=== PATIENT | female | born 1975 ===

== ENCOUNTER 2024-05-04 07:28 | Day surgery (SDC) | payer OTHER ==
[2024-05-03 11:59] LABS: URINE APPEARANCE Cloudy; URINE BILIRRUBIN Negative (NEGATIVE); URINE BLOOD Negative; URINE COLOR Dark Yellow; URINE GLUCOSE Negative (NEGATIVE); URINE LEUKOCYTE Small; URINE NITRATE Negative; URINE PROTEIN Negative (NEGATIVE)
[2024-05-03 12:00] LABS: URINE EPITHELIAL CELLS 85.6 uL (0.0-38.8); URINE RBC 3.6 uL (0.0-20.8); URINE WBC 75.7 uL (0.0-23.2)
[2024-05-03 12:10] LABS: HEMATOCRIT 43.3 % (36.0-45.00); HEMOGLOBIN 14.9 g/dL (12.0-15.00); MEAN CORPUSCULAR HEMOGLOBIN 31.3 pg (27.00-32.0); MEAN CORPUSCULAR HGB CONC 34.4 g/dl (32.0-36.0); PLATELET COUNT 241 K/uL (150-450); RED BLOOD COUNT 4.75 M/uL (4.00-6.00); RED CELL DISTRIBUTION WIDTH 14.3 % (11.5-14.5)
[2024-05-03 12:57] LABS: ALBUMIN 4.2 gm/dL (3.4-5.0); BILIRUBIN TOTAL 0.4 mg/dL (0.3-1.2); CREATININE SERUM 0.94 mg/dL (0.55-1.02); GFR 62.78; POTASSIUM 4.47 mEq/L (3.5-5.1); TOTAL PROTEIN 7.2 gm/dL (6.4-8.2)
[2024-05-03 13:05] LABS: INR 0.97; PARTIAL THROMBOPLASTIN TIME 27.4 SECONDS (22.0-34.0); PROTHROMBIN TIME 9.8 SECONDS (9.0-11.5)
[~2024-05-04 07:28] MED LIST: BUPROPION XL450 MG PO; CAMBIA50 MG PO; CLONAZEPAM1 MG PO; GRALISE600 MG PO; SYNTHROID125 MCG PO; TRAZODONE HCL150 MG PO
[2024-05-04] MEDS ORDERED: CEFAZOLIN SODIUM 1,000 MG VIAL ONE (13:20)
[2024-05-04] MEDS ORDERED: BUPIVACAINE HCL/MPF 0.5% 30ML VIAL ONE (13:21)
[2024-05-04] MEDS ORDERED: BUPIVACAINE HCL 30 ML VIAL IJ ONE (14:30)
[2024-05-04] MEDS ORDERED: CEFAZOLIN SODIUM 1,000 MG VIAL IV SCH (14:30)
[2024-05-04] MEDS ORDERED: PHENOL 177 ML BOTTLE MM ONE (16:15)
== END 2024-05-04 18:10 | disposition home or self-care (01) ==
LOC: CIR.AMB 07:28
PROVIDERS: ATTEND Orthopaedic Surgery Hand Surgery
DX: D21.12 Benign neoplasm of connective and other soft tissue of left upper limb, including shoulder (principal); R22.32 Localized swelling, mass and lump, left upper limb; Z91.013 Allergy to seafood; E03.9 Hypothyroidism, unspecified; F41.8 Other specified anxiety disorders; H52.10 Myopia, unspecified eye